=== PATIENT | female | born 1980 | race Caucasian/White ===

== ENCOUNTER 2016-05-24 09:57 | Emergency (ER) | payer OTHER ==
[~2016-05-24] VITALS: Ht 157.5 cm; Wt 74.8 kg
[~2016-05-24 09:57] MED LIST: DYAZIDE 37.5-21 EACH PO; HCTZ/TRIAMTEREN1 TA3 PO; HYCET 7.5 MG-3473 ML PO; LISINOPRIL20 M1 PO; MAXALT10 M1 PO; MULTI-DAY VITA1 EACH PO; PERCOCET 325 MG1 TA2 PO; PREDNISONE10 MG PO; PROTONIX20 M1 PO; PROTONIX40 M3 PO; PROZAC40 M1 PO; SUMATRIPTAN SUC50 MG PO; TYLENOL #31 TAB PO; ZITHROMAX250 MG PO; ZOFRAN ODT4 MG SL
--- NOTE | 2016-05-24 10:22 | ED GI/GU/ABDOMINAL COMPLAINT ---
History of Present Illness General Chief Complaint: Nausea, Vomiting, Diarrhea Stated Complaint: diarrhea x 3days Source: patient, old records Exam Limitations: no limitations Vital Signs & Intake/Output Vital Signs & Intake/Output Vital Signs Date Time Temp Pulse Resp B/P Pulse O2 O2 Flow FiO2 Ox Delivery Rate 05/24 1210 97.0 48 18 108/73 100 Room Air 05/24 1050 55 119/78 05/24 1004 97.0 56 20 127/85 100 Room Air Allergies Coded Allergies: Penicillins (Mild, RASH 08/16/15) amoxicillin (Mild, RASH 08/16/15) aspirin (Mild, RASH 08/16/15) Reconcile Medications Fluoxetine HCl (Prozac) 40 MG CAPSULE 1 CAP PO DAILY DEPRESSION (Reported) Hydrocodone/Acetaminophen (Hycet 7.5 MG-325 MG/15 Ml Soln) 473 ML SOLUTION 15 ML PO Q4-6P PRN PAIN Multivitamin (Multi-Day Vitamins) 1 EACH TABLET 1 TAB PO DAILY SUPPLEMENT ( Reported) Pantoprazole Sodium (Protonix) 40 MG TABLET.DR 1 TAB PO DAILY reflux Rizatriptan Benzoate (Maxalt) 10 MG TABLET 1 TAB PO DAILY PRN MIGRAINES ( Reported) Triage Note: PT C/O ABDOMINAL PAIN AND DIARRHEA X 3 DAYS. PT DENIES N/V. PT STATES SHE TRIED TAKING IMMODIUM WITHOUT RELIEF. PT ALSO TAKING DAYQUIL FOR SINUS CONGESTION Triage Nurses Notes Reviewed? yes ? N Is pt currently ? No HPI: Patient presents with a three-day history of profuse watery diarrhea. There is no been no blood in her stool. Patient states that she gets crampy bilateral lower quadrant abdominal pain that then escalates very sharp stabbing pain and then she has diarrhea. Patient states she's been to the bathroom multiple times during the day. Patient states that she is now feeling lightheaded when she stands up. There is been no nausea or vomiting. Patient had a gastric bypass back in November. Patient was at work today and the symptoms got worse and she comes in for evaluation. At its worst the pain is 10 out of 10. There is no radiation which he gets the pain. There are no aggravating or mitigating factors. Past History Travel History Traveled to [place] past 21 day No Medical History Any Pertinent Medical History? 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 No Review of Systems Review of Systems Constitutional: Reports: no symptoms. EENTM: Reports: no symptoms. Respiratory: Reports: no symptoms. Cardiovascular: Reports: no symptoms. GI: Reports: see HPI, abdominal pain, diarrhea. Genitourinary: Reports: no symptoms. Musculoskeletal: Reports: no symptoms. Skin: Reports: no symptoms. Neurological/Psychological: Reports: no symptoms. Hematologic/Endocrine: Reports: no symptoms. Immunologic/Allergic: Reports: no symptoms. All Other Systems: Reviewed and Negative Physical Exam Physical Exam General Appearance: well developed/nourished, alert, awake, moderate distress Head: atraumatic, normal appearance Eyes: Bilateral: PERRL, EOMI. Ears, Nose, Throat, Mouth: hearing grossly normal, DRY MUCOSA Neck: normal inspection, supple, full range of motion Respiratory: normal breath sounds, chest non-tender, no respiratory distress, lungs clear Cardiovascular: regular rate/rhythm, normal peripheral pulses Gastrointestinal: normal bowel sounds, soft, no organomegaly Back: normal inspection, normal range of motion Extremities: normal range of motion Neurologic/Psych: no motor/sensory deficits, awake, alert, oriented x 3, normal mood/affect Skin: intact, normal color, warm/dry Core Measures ACS in differential dx? No Severe Sepsis Present: No Septic Shock Present: No Progress Differential Diagnosis: diverticulitis, VIRAL ENTERITIS Plan of Care: Orders Procedure Date/time Status MISTAKE 05/24 1021 Active C.DIFFICILE 05/24 1021 Active URINALYSIS 05/24 1021 Complete COMPREHENSIVE METABOLIC PANEL 05/24 1021 Complete CBC WITHOUT DIFFERENTIAL 05/24 1021 Complete Laboratory Tests 05/24/16 1224: Urine Color YEL, Urine Clarity CLEAR, Urine pH 6.0, Ur Specific [place] 1.015, Urine Protein NEG, Urine Ketones NEG, Urine Nitrite NEG, Urine Bilirubin NEG, Urine Urobilinogen 0.2, Ur Leukocyte Esterase NEG, Ur Microscopic SEDIMENT EXAMINED, Urine RBC 5-10 H, Urine WBC 1-3 H, Ur Epithelial Cells MANY H, Urine Mucus MOD H, Urine Hemoglobin MOD H, Urine Glucose NEG 05/24/16 1040: Anion Gap 11, Estimated GFR > 60, BUN/Creatinine Ratio 15.0, Glucose 79, Calcium 9.1, Total Bilirubin 0.6, AST 42 H, ALT 62 H, Alkaline Phosphatase 130 H, Total Protein 7.2, Albumin 4.4, Globulin 2.8, Albumin/Globulin Ratio 1.6, CBC w Diff NO MAN DIFF REQ, RBC 4.23, MCV 94.2, MCH 32.6 H, RDW 12.4, MPV 7.5, Gran % 54.9, Lymphocytes % 36.4, Monocytes % 7.5, Eosinophils % 0.7, Basophils % 0.5, Absolute Granulocytes 3.2, Absolute Lymphocytes 2.1, Absolute Monocytes 0.4, Absolute Eosinophils 0, Absolute Basophils 0, PUBS MCHC 34.6 Microbiology 05/24 1030 STOOL: Clostridium difficile Toxin A & B - RECD Initial ED EKG: none Comments: Discussed with Dr. Morataya, most likely this is the gastroenteritis that is going around. There are no orthostatic changes. Patient able to ambulate in the emergency department without difficulty. Departure Departure Disposition: HOME OR SELF CARE Condition: Stable Clinical Impression Primary Impression: Diarrhea Referrals: IGOR WALTON DO (PCP/Family) Departure Forms: Customer Survey General Discharge Information
[2016-05-24 10:57] LABS: ABSOLUTE BASOPHIL COUNT 0 /CUMM (0.0-0.2); ABSOLUTE EOSINOPHIL COUNT 0 /CUMM (0.0-0.7); ABSOLUTE GRANULOCYTE CT 3.2 /CUMM (1.4-6.5); ABSOLUTE LYMPH COUNT 2.1 /CUMM (1.2-3.4); ABSOLUTE MONOCYTE COUNT 0.4 /CUMM (0.10-0.60); BASOPHIL % 0.5 % (0.0-2.0); EOSINOPHIL % 0.7 % (0-5); GRANULOCYTE % 54.9 % (42.2-75.2); HEMATOCRIT 39.8 % (37-47); MEAN CORPUSCULAR HGB 32.6 PG (27.0-31.0); MEAN CORPUSCULAR HGB CONC 34.6 G/DL (33.0-37.0); MEAN CORPUSCULAR VOLUME 94.2 FL (81.0-99.0); MEAN PLATELET VOLUME 7.5 FL (7.4-10.4); PLATELET COUNT 240 /CUMM (130-400); RBC DISTRIBUTION WIDTH 12.4 % (11.5-14.5); RED BLOOD CELL CT 4.23 /CUMM (4.20-5.40); WHITE BLOOD CELL COUNT 5.9 /CUMM (4.8-10.8)
[2016-05-24 14:18] VITALS: BP 124/80
== END 2016-05-24 14:58 ==
LOC: ERH 09:57
PROVIDERS: Emergency Medicine
DX: R19.7 Diarrhea, unspecified (principal); R10.31 Right lower quadrant pain; R10.32 Left lower quadrant pain
CPT/HCPCS: 81001; 96360; 96361

== ENCOUNTER 2016-08-24 18:39 | Emergency (ER) | payer OTHER ==
[~2016-08-24] VITALS: Ht 157.5 cm; Wt 71.2 kg
--- NOTE | 2016-08-24 19:33 | ED NECK/BACK PAIN COMPLAINT ---
History of Present Illness General Chief Complaint: General Adult Stated Complaint: PT IS HAVING LOWER BACK PAIN, HAD KIDNEY INFECTION Source: patient Exam Limitations: no limitations Vital Signs & Intake/Output Vital Signs & Intake/Output Vital Signs Date Time Temp Pulse Resp B/P B/P Pulse O2 O2 Flow FiO2 Mean Ox Delivery Rate 08/25 0016 98.3 54 20 108/70 98 Room Air 08/24 2129 97.2 62 16 106/70 93 Room Air 08/24 1858 95.8 80 20 143/94 99 Room Air Room Air ED Intake and Output 08/25 0000 08/24 1200 Intake Total 1000 Output Total Balance 1000 Intake, IV 1000 Patient 157 lb Weight Weight Reported by Patient Measurement Method Allergies Coded Allergies: Penicillins (Mild, RASH 08/16/15) amoxicillin (Mild, RASH 08/16/15) aspirin (Mild, RASH 08/16/15) Triage Note: PT TO ED WITH C/O LOW BACK PAIN, DX WITH UTI, WAS ON ONE ANTIBIOTIC, DIDN'T WORK, PUT ON CIPRO CURRENTLY, "PAIN NOT GOING AWAY". Triage Nurses Notes Reviewed? yes : No Patient currently breastfeeds: No HPI: This patient is a 35-year-old female recently diagnosed with a kidney infection who presented to the emergency department today for evaluation of worsening lower back pain. The patient reported that when she was originally diagnosed with kidney infection, she was seen in the walk-in in the diagnosis was made based on urinalysis. At that time she was having urinary burning and urgency. However, she is not having any urinary symptoms at this time. No urinary frequency or blood in the urine. She reported that earlier today she started to notice that her lower back was feeling sore, now the pain gets up to 10 out of 10, is throbbing, and radiates to her groin region bilaterally. The patient reported nausea and vomiting 4 times today and multiple times over the last couple of days. She reported chills and tactile fever. The patient reported that she was originally on one antibiotic, but it was found to be resistant and she was switched to Cipro which she has been taking for approximately 10 days. (FEMI LOREDO,NAI) Reconcile Medications Ciprofloxacin HCl 500 MG TABLET 1 TAB PO BID ANTIBIOTIC (Reported) Etonogestrel/Ethinyl Estradiol (Nuvaring Vaginal Ring) 0.12 MG -0.015 MG/24 HR VAG.RING 1 EACH VG Q30D CONTROL (Reported) use for 3 weeks, skip for 1 week Fluoxetine HCl 20 MG TABLET 1 TAB PO DAILY MENTAL HEALTH (Reported) Metoclopramide HCl (Reglan) 10 MG TABLET 1 TAB PO 4 TIMES/DAY PRN nausea and vomiting 30 minutes before meals and bedtime Multivitamin (Multi-Day Vitamins) 1 EACH TABLET 1 TAB PO DAILY SUPPLEMENT ( Reported) Pantoprazole Sodium (Protonix) 40 MG TABLET.DR 1 TAB PO DAILY reflux Rizatriptan Benzoate (Maxalt) 10 MG TABLET 1 TAB PO DAILY PRN MIGRAINES ( Reported) Tramadol HCl 50 MG TABLET 1 TAB PO BIDP PRN pain (BARTOLOME CHAN DO) Past History Travel History Traveled to [place] past 21 day No Medical History Any Pertinent Medical History? 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 No (NAI KAHN PA-C) Review of Systems Review of Systems Constitutional: Reports: see HPI. Eyes: Reports: no symptoms. Ears, Nose, Throat, Mouth: Reports: no symptoms. Respiratory: Reports: no symptoms. Cardiovascular: Reports: no symptoms. Gastrointestinal/Abdominal: Reports: see HPI. Musculoskeletal: Reports: see HPI. Skin: Reports: no symptoms. Neurological/Psychological: Reports: no symptoms. All Other Systems: Reviewed and Negative (NAI KAHN PA-C) Physical Exam Physical Exam Neck: normal inspection, supple, full range of motion, normal alignment Comments: Well-developed well-nourished person in mild distress HEENT: Normal EENT exam, head normocephalic, moist mucous membranes Neck: Supple, no lymphadenopathy Back: Normal inspection. No midline tenderness. Bilateral CVA tenderness Cardiovascular: Regular rate and rhythm with no murmurs Respiratory: No respiratory distress. Speaking in full sentences Abdomen: Soft and nondistended. Normoactive bowel sounds. Diffusely tender to palpation with no rebound or guarding. No peritoneal signs Extremity: Normal and equal pulses. Neuro: Alert oriented x3, cranial nerves II through XII grossly intact. Skin: No appreciable rash on exposed skin, skin is warm and dry. Psych: Mood and affect is normal (FEMI LOREDO,NAI) Progress Differential Diagnosis: cauda equina syn, herniated disc, myofascial strain, pyelo/UTI, sciatica, spinal cord inj, thoracic outlet syn, T/L spine injury, ureterolithiasis Plan of Care: Orders Procedure Date/time Status Add-on Test (ER Only) 08/24 2041 Active HUMAN BETA HCG SCREEN 08/24 2006 Complete CULTURE,URINE 08/25 1923 Active URINE 08/25 1923 Complete URINALYSIS 08/25 1923 Complete LIPASE 08/25 1923 Complete DIRECT BILIRUBIN 08/25 1923 Complete COMPREHENSIVE METABOLIC PANEL 08/25 1923 Complete CBC WITHOUT DIFFERENTIAL 08/25 1923 Complete AMYLASE 08/25 1923 Complete Laboratory Tests 08/24/162112: Urine Color YEL, Urine Clarity CLEAR, Urine pH 6.0, Ur Specific [place] 1.015, Urine Protein 100 H, Urine Ketones NEG, Urine Nitrite NEG, Urine Bilirubin NEG, Urine Urobilinogen 0.2, Ur Leukocyte Esterase NEG, Ur Microscopic SEDIMENT EXAMINED, Urine RBC RARE, Urine WBC 1-3 H, Ur Epithelial Cells FEW, Urine Bacteria FEW H, Urine Mucus FEW, Urine Hemoglobin TRACE-INTACT, Urine Glucose NEG, Urine Test NEGATIVE 08/24/162006: Anion Gap 13, Estimated GFR 40 L, BUN/Creatinine Ratio 14.7, Glucose 77, Calcium 9.0, Total Bilirubin 0.9, Direct Bilirubin 0.3, AST 40 H, ALT 70 H, Alkaline Phosphatase 88, Total Protein 6.8, Albumin 4.2, Globulin 2.6, Albumin/ Globulin Ratio 1.6, Amylase 72, Lipase 179, Total Beta HCG NEGATIVE, CBC w Diff NO MAN DIFF REQ, RBC 3.86 L, MCV 96.0, MCH 32.5 H, RDW 12.4, MPV 7.3 L, Gran % 70.4, Lymphocytes % 23.5, Monocytes % 4.9, Eosinophils % 0.5, Basophils % 0.7, Absolute Granulocytes 7.2 H, Absolute Lymphocytes 2.4, Absolute Monocytes 0.5, Absolute Eosinophils 0.1, Absolute Basophils 0.1, PUBS MCHC 33.8 Microbiology 08/24 2112 URINE ROUT: Urine Culture - RECD Diagnostic Imaging: Viewed by Me: CT Scan. Discussed w/RAD: CT Scan. Radiology Impression: PATIENT: SUE GONZALEZ PRESENT AGE: 35 PATIENT ACCOUNT NO: [id number] : 82 LOCATION: [facility] ORDERING PHYSICIAN: NAI KAHN PA-C SERVICE DATE: 08/24/16 EXAM TYPE: CAT - CT ABD & PELVIS W/O IV CONTRAS EXAMINATION: CT ABDOMEN AND PELVIS WITHOUT CONTRAST CLINICAL INFORMATION: Flank pain. Rule out pyelonephritis. COMPARISON: CT abdomen and pelvis dated 09/28/2014. TECHNIQUE: Multidetector volumetric imaging was performed from the superior aspect of the liver through the pubic symphysis. Sagittal and coronal reformatted images were obtained on the technologist's workstation. DLP: 275 mGy-cm. FINDINGS: LUNG BASES: The visualized lung bases are unremarkable. LIVER, GALLBLADDER, AND BILIARY TREE: The liver is normal in size and attenuation. 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 No focal hepatic lesion or biliary ductal dilatation is present. Dependent sludge is likely present in the gallbladder. The gallbladder is otherwise unremarkable with no evidence of radiopaque gallstones, gallbladder wall thickening, or obvious pericholecystic inflammatory changes. PANCREAS: Unremarkable. SPLEEN: Unremarkable. ADRENAL GLANDS: Unremarkable. KIDNEYS AND URETERS: The kidneys are normal in size, shape, and attenuation. There is mild bilateral perinephric stranding. No hydronephrosis, hydroureter, or calculi seen. BLADDER: Unremarkable. GASTROINTESTINAL TRACT: Postsurgical changes of prior Sera-en-Y gastric bypass are evident. Chain josué are present in the left upper quadrant. Jejunojejunal anastomotic josué are present in the left upper quadrant as well. There is a nondilated bowel gas pattern. Appendix is normal. No appreciable bowel wall thickening or surrounding inflammatory changes are identified. ABDOMINAL WALL: No significant hernia is appreciated. LYMPH NODES: Normal. VASCULAR: Unremarkable. PELVIC VISCERA: The uterus and adnexa are unremarkable. OSSEOUS STRUCTURES: Unremarkable. IMPRESSION: 1. Mild bilateral perinephric stranding. This is relatively common and has a wide variety of causes, including arthritis. Noncontrast CT is neither sensitive nor specific for pyelonephritis, unfortunately. Kidneys and renal collecting systems are otherwise normal. No hydronephrosis or nephrolithiasis. 2. Postsurgical changes of prior Sera-en-Y gastric bypass without evidence of complications. 3. Sludge in the gallbladder. No biliary ductal dilatation or surrounding inflammatory change. DICTATED BY: NEYMRA DEL CID MD DATE/TIME DICTATED:08/24/162148 CONFERENCE SERVICES COORDINATOR:CACHORRO DATE/TIME TRANSCRIBED:08/24/162148 CONFIDENTIAL, DO NOT COPY WITHOUT APPROPRIATE AUTHORIZATION. <Electronically signed in Other Vendor System> SIGNED BY: NEYMAR DEL CID MD 08/24/16 2212 Comments: 08/24/2016 9:01:27 PM: I was at the patient's bedside [id number] evaluation. She reported that her pain is still a 9 out of 10. She reported that she is still feeling nauseous. 08/24/2016 11:24:18 PM: Dr. Chan at the patient's bedside [id number] evaluation. Recommended calling Dr. Tam due to this patient's history of gastric bypass and current history of nausea and vomiting 08/24/2016 11:53:31 PM: I discussed this patient with Dr. Tam, on-call transitional kindergarten teacher, who reviewed this patient's CT scan. Seems think this is more of a kidney related issue than a gastric issue. (FEMI LOREDO,NAI) Departure Departure Disposition: HOME OR SELF CARE Condition: Stable Clinical Impression Primary Impression: Back pain Qualifiers: Back pain location: low back pain Chronicity: unspecified Back pain laterality: bilateral Sciatica presence: without sciatica Qualified Code: M54.5 - Low back pain Referrals: IGOR WALTON DO (PCP/Family) Additional Instructions: Take medication for pain as prescribed. Take medication for nausea as prescribed. Rest and be sure to stay hydrated. Continue to take your previously prescribed antibiotic as directed and for the full duration. Return for any worsening symptoms or concerns. Departure Forms: Customer Survey General Discharge Information Prescriptions: Current Visit Scripts Tramadol HCl 1 TAB PO BIDP PRN pain #10 TAB Metoclopramide HCl (Reglan) 1 TAB PO 4 TIMES/DAY PRN nausea and vomiting #12 TAB 30 minutes before meals and bedtime (NAI KAHN PA-C) PA/COW BUYER Co-Sign Statement Statement: ED Attending supervision documentation- [] I saw and evaluated the patient. I have also reviewed all the pertinent lab results and diagnostic results. I agree with the findings and the plan of care as documented in the PA's/COW BUYER's documentation. [X I have reviewed the ED Record and agree with the PA's/COW BUYER's documentation. [] Additions or exceptions (if any) to the PAs/COW BUYER's note and plan are summarized below: [] (BARTOLOME CHAN DO)
[2016-08-24] MEDS ORDERED: CIPROFLOXACIN500 M2 PO (20:21)
[2016-08-24 20:22] LABS: ABSOLUTE BASOPHIL COUNT 0.1 /CUMM (0.0-0.2); ABSOLUTE EOSINOPHIL COUNT 0.1 /CUMM (0.0-0.7); ABSOLUTE GRANULOCYTE CT 7.2 /CUMM (1.4-6.5); ABSOLUTE LYMPH COUNT 2.4 /CUMM (1.2-3.4); ABSOLUTE MONOCYTE COUNT 0.5 /CUMM (0.10-0.60); BASOPHIL % 0.7 % (0.0-2.0); EOSINOPHIL % 0.5 % (0-5); GRANULOCYTE % 70.4 % (42.2-75.2); MEAN CORPUSCULAR HGB 32.5 PG (27.0-31.0); MEAN CORPUSCULAR HGB CONC 33.8 G/DL (33.0-37.0); MEAN PLATELET VOLUME 7.3 FL (7.4-10.4); PLATELET COUNT 286 /CUMM (130-400); RBC DISTRIBUTION WIDTH 12.4 % (11.5-14.5); RED BLOOD CELL CT 3.86 /CUMM (4.20-5.40); WHITE BLOOD CELL COUNT 10.2 /CUMM (4.8-10.8)
[2016-08-24] MEDS ORDERED: FLUOXETINE HCL20 M3 PO (20:22)
[2016-08-24] MEDS ORDERED: NUVARING VAGIN1 EACH VG (20:22)
--- NOTE | 2016-08-24 22:12 | CT SCAN REPORT ---
EXAMINATION: CT ABDOMEN AND PELVIS WITHOUT CONTRAST CLINICAL INFORMATION: Flank pain. Rule out pyelonephritis. COMPARISON: CT abdomen and pelvis dated 09/28/2014. TECHNIQUE: Multidetector volumetric imaging was performed from the superior aspect of the liver through the pubic symphysis. Sagittal and coronal reformatted images were obtained on the technologist's workstation. DLP: 275 mGy-cm. FINDINGS: LUNG BASES: The visualized lung bases are unremarkable. LIVER, GALLBLADDER, AND BILIARY TREE: The liver is normal in size and attenuation. 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 No focal hepatic lesion or biliary ductal dilatation is present. Dependent sludge is likely present in the gallbladder. The gallbladder is otherwise unremarkable with no evidence of radiopaque gallstones, gallbladder wall thickening, or obvious pericholecystic inflammatory changes. PANCREAS: Unremarkable. SPLEEN: Unremarkable. ADRENAL GLANDS: Unremarkable. KIDNEYS AND URETERS: The kidneys are normal in size, shape, and attenuation. There is mild bilateral perinephric stranding. No hydronephrosis, hydroureter, or calculi seen. BLADDER: Unremarkable. GASTROINTESTINAL TRACT: Postsurgical changes of prior Sera-en-Y gastric bypass are evident. Chain josué are present in the left upper quadrant. Jejunojejunal anastomotic josué are present in the left upper quadrant as well. There is a nondilated bowel gas pattern. Appendix is normal. No appreciable bowel wall thickening or surrounding inflammatory changes are identified. ABDOMINAL WALL: No significant hernia is appreciated. LYMPH NODES: Normal. VASCULAR: Unremarkable. PELVIC VISCERA: The uterus and adnexa are unremarkable. OSSEOUS STRUCTURES: Unremarkable. IMPRESSION: 1. Mild bilateral perinephric stranding. This is relatively common and has a wide variety of causes, including arthritis. Noncontrast CT is neither sensitive nor specific for pyelonephritis, unfortunately. Kidneys and renal collecting systems are otherwise normal. No hydronephrosis or nephrolithiasis. 2. Postsurgical changes of prior Sera-en-Y gastric bypass without evidence of complications. 3. Sludge in the gallbladder. No biliary ductal dilatation or surrounding inflammatory change.
[2016-08-25] MEDS ORDERED: REGLAN10 M1 PO (00:01)
[2016-08-25] MEDS ORDERED: TRAMADOL HCL50 M1 PO (00:01)
[2016-08-25 00:16] VITALS: BP 108/70
== END 2016-08-25 00:17 ==
LOC: ERH 18:39
PROVIDERS: Physician Assistant
DX: M54.5 Low back pain (principal)
CPT/HCPCS: 74176; 81001; 81025; 87086; 96361; 96374; 96375; J2405; J2765